=== PATIENT | female | born 1965 | race Two or more races ===

== ENCOUNTER 2020-12-17 21:33 | Emergency (ER) | payer MEDICAID, OTHER ==
[~2020-12-17] VITALS: Ht 152.4 cm; Wt 74.8 kg
[2020-12-17 21:34] VITALS: BP 111/94
== END 2020-12-18 01:04 | disposition home or self-care (01) ==
LOC: ER 21:36
DX: G44.209 Tension-type headache, unspecified, not intractable (principal); R53.83 Other fatigue; E11.9 Type 2 diabetes mellitus without complications; E78.00 Pure hypercholesterolemia, unspecified; I10 Essential (primary) hypertension

== ENCOUNTER 2021-10-11 17:02 | Emergency (ER) | payer MEDICAID ==
[~2021-10-11] VITALS: Ht 152.4 cm; Wt 45.4 kg
[2021-10-11] MEDS ORDERED: KETOROLAC TROMETH 30 MG/ML 1ML VIAL IM ONE (23:15)
[2021-10-11 23:53] LABS: Urine Bacteria NONE SEEN /hpf (None Seen); Urine Blood Negative /uL (Negative); Urine WBC 1 /hpf (0 - 5)
[2021-10-12 00:50] VITALS: BP 138/87
== END 2021-10-12 01:07 | disposition home or self-care (01) ==
LOC: ER 17:02
DX: M54.41 Lumbago with sciatica, right side (principal); E11.9 Type 2 diabetes mellitus without complications; E78.5 Hyperlipidemia, unspecified; I10 Essential (primary) hypertension
CPT/HCPCS: 72100; 81001; 96372; 99284; J1885

== ENCOUNTER 2022-04-29 20:34 | Emergency (ER) | payer MEDICAID ==
[~2022-04-29] VITALS: Ht 152.4 cm; Wt 75.0 kg
[2022-04-29 21:16] LABS: Urine Bacteria NONE SEEN /hpf (None Seen); Urine Blood Negative /uL (Negative); Urine Specific Gravity 1.031 (1.001-1.035); Urine WBC 1 /hpf (0 - 5)
[2022-04-29 22:02] LABS: Basophils # (auto) 0 10 ^3/uL (0-0.2); Basophils % (auto) 0.7 % (0.0-2.0); Eosinophils # (auto) 0.1 10 ^3/uL (0-0.8); Eosinophils % (auto) 1.9 % (0.0-7.0); Hematocrit 44.9 % (36.0-46.0); Hemoglobin 15.4 g/dL (12.2-16.2); Lymphocytes # (auto) 2.3 10 ^3/uL (0.4-5.4); Lymphocytes % (auto) 35.2 % (10.0-50.0); Mean Corpuscular Hemoglobin 29.3 pg (28.0-32.0); Mean Corpuscular Hgb Conc. 34.2 g/dL (32.0-36.0); Mean Corpuscular Volume 85.6 fL (80.0-100.0); Monocytes # (auto) 0.5 10 ^3/uL (0-1.3); Monocytes % (auto) 7.7 % (0.0-12.0); Neutrophils # (auto) 3.5 10 ^3/uL (1.6-8.6); Neutrophils % (auto) 54.5 % (37.0-80.0); Nucleated Red Blood Cells % 0.1 %; Red Blood Cells 5.25 10^6/uL (4.0-5.20); Red Cell Distribution Width 13.4 % (11.8-14.3); White Blood Cell 6.4 10^3/uL (4.4-10.8)
[2022-04-29 22:15] LABS: Albumin 3.5 g/dL (3.4-5.0); Calcium 8.9 mg/dL (8.5-10.1); Potassium 3.8 mmol/L (3.5-5.1)
[2022-04-29 22:19] LABS: BUN/Creatinine Ratio 21.2; Bilirubin, Total 0.4 mg/dL (0.2-1.0); Total Protein 7.1 g/dL (6.4-8.2)
[2022-04-29 22:39] VITALS: BP 141/77
== END 2022-04-29 22:44 | disposition home or self-care (01) ==
LOC: ER 20:35
DX: E11.65 Type 2 diabetes mellitus with hyperglycemia (principal); R07.89 Other chest pain; I10 Essential (primary) hypertension; E78.5 Hyperlipidemia, unspecified
CPT/HCPCS: 36415; 71045; 80053; 81001; 82010; 82962; 83880; 84484; 85025; 93005

== ENCOUNTER 2023-10-01 07:04 | Day surgery (SDC) | payer MEDICAID ==
[~2023-10-01] VITALS: Ht 152.4 cm; Wt 76.2 kg
[2023-10-01] VITALS (9 sets, daily range): BP systolic 112–130; BP diastolic 65–74; PULSE 73–89; RESP 14–20; TEMP 97.4; O2SAT 91–96
[~2023-10-01 07:04] MED LIST: AMLO1TAB22 PO; ASPI-543 PO; HYDR25TA5 PO; IBUP-1454 PO; INSU1INJ26 SC; LISI40TA16 PO; MELO7.5T7 PO; METO25TA5 PO; ROSU40TA81 PO
[2023-10-01] MEDS ORDERED: LIDOCAINE 2%HCL (LOCAL ANESTH.) INJ 20ML MDV ONE (07:47)
[2023-10-01] MEDS ORDERED: IODIXANOL 320MG/ML 100ML BTL IV ONE (07:47)
[2023-10-01] MEDS ORDERED: VERAPAMIL 2.5MG/ML INJ 2ML VIAL IV ONE (08:00)
[2023-10-01] MEDS ORDERED: ANGIOMAX 250 MG VIAL IV ONE (08:00)
[2023-10-01] MEDS ORDERED: fentaNYL CITRATE 100 MCG/2 ML VL ONE (08:00)
[2023-10-01] MEDS ORDERED: NITROGLYCERIN 50MG/250ML 250 ML IV ONE (08:01)
[2023-10-01] MEDS ORDERED: MIDAZOLAM HCL 2MG/2ML 2ml VIAL (1mg/ml) ONE (08:01)
[2023-10-01] MEDS ORDERED: SODIUM CHL 0.9% 0 ML ONE (08:02)
[2023-10-01] MEDS ORDERED: HEPARIN SODIUM (PORCINE) 5000 UNITS/ML 1ML VIAL ONE (08:45)
== END 2023-10-01 11:25 | disposition home or self-care (01) ==
LOC: CATH 07:04
PROVIDERS: ATTEND Internal Medicine Cardiovascular Disease
DX: I25.10 Atherosclerotic heart disease of native coronary artery without angina pectoris (principal); R94.39 Abnormal result of other cardiovascular function study; I10 Essential (primary) hypertension; E11.9 Type 2 diabetes mellitus without complications; E78.5 Hyperlipidemia, unspecified; Z79.82 Long term (current) use of aspirin; Z79.4 Long term (current) use of insulin; Z79.899 Other long term (current) drug therapy; Z85.3 Personal history of malignant neoplasm of breast; Z86.73 Personal history of transient ischemic attack (TIA), and cerebral infarction without residual deficits; Z90.710 Acquired absence of both cervix and uterus; Z98.890 Other specified postprocedural states
CPT/HCPCS: 93458; C1725; C1894; J1644; J2250; J3010; Q9967; 99152